=== PATIENT | male | born 1970 | race Caucasian/White ===

== ENCOUNTER 2016-08-04 17:25 | Emergency (ER) | payer BC, OTHER ==
[~2016-08-04] VITALS: Ht 175.3 cm; Wt 113.6 kg
[~2016-08-04 17:25] MED LIST: HYDR-2145 PO; MELO-32 PO; bp med
[2016-08-04 17:28] VITALS: Ht 175.3 cm; Wt 113.6 kg
--- OUTSIDE RECORDS SUMMARY | 2016-08-04 17:28 | XMS REPORT ---
Author Author Lotus Langston [facility] eClinicalWorks Address Unknown Phone Unavailable Care Team Providers Care Stadium Attendant Name Role Phone Lotus Langston Unavailable Allergies No Known Allergies Problems Problem Type Condition Code Onset Dates Condition Status Problem Hypertension I10 Active Medications Medication Code System Code Instructions Start Date End Date Status Dosage Adderall [facility] [address]-39 20 MG Orally BID September 09, 2015 1 tablet Results No Known Results Summary Purpose eClinicalWorks Submission
--- OUTSIDE RECORDS SUMMARY | 2016-08-04 17:28 | XMS REPORT ---
Author Author Lotus Langston Organization eClinicalWorks Address Unknown Phone Unavailable Care Team Providers Care Finished Metal Repairer Name Role Phone Lotus Langston CP Unavailable Allergies No Known Allergies Problems Problem Type Condition Code Onset Dates Condition Status Problem Personal history of noncompliance with medical treatment, presenting hazards to health V15.81 Active Problem Obstructive sleep apnea (adult) (pediatric) 327.23 Active Problem Overweight 278.02 Active Problem Attention or concentration deficit 799.51 Active Problem Other testicular hypofunction 257.2 Active Problem Personal history of tobacco use, presenting hazards to health V15.82 Active Problem Nondependent tobacco use disorder 305.1 Active Problem Elevated blood pressure reading without diagnosis of hypertension 796.2 Active Problem Nondependent opioid abuse, episodic pattern of use 305.52 Active Medications Medication Code System Code Instructions Start Date End Date Status Dosage Adderall [facility] [address]-93 20 MG Orally BID; May fill 08/13/15 June 22, 2015 1 tablet Results No Known Results Summary Purpose eClinicalWorks Submission
--- OUTSIDE RECORDS SUMMARY | 2016-08-04 17:28 | XMS REPORT ---
Author Author Michaelle Gordon Organization [facility] Address [address] [place] [address] Care Team Providers Care Hydraulic Lift Operator Name Role Phone Gordon, Michaelle Unavailable [phone] PROBLEMS Type Condition ICD9-CM Code [id number] Code Onset Dates Condition Status SNOMED Code Problem Impaired fasting glucose R73.01 Active 427768181 Problem Insomnia, unspecified G47.00 Active 398215222 Problem Other fatigue R53.83 Active 48013069 Assessment Attention and concentration deficit R41.840 Jul, Active 426214892 Problem Hypertension I10 Active 78084543 Problem Personal history of nicotine dependence Z87.891 Active 94573815 Problem Attention and concentration deficit R41.840 Active 233409153 Problem Elevated blood-pressure reading, without diagnosis of hypertension R03.0 Active 175147696 Problem Obstructive sleep apnea (adult) (pediatric) G47.33 Active 27742715 Problem Umbilical hernia without obstruction or gangrene K42.9 Active 957170511 Problem Testicular hypofunction E29.1 Active 647905929 Problem Opioid abuse with intoxication, uncomplicated F11.120 Active ALLERGIES Substance Reaction Event Type Date Status N.K.D.A. Unknown Non Drug Allergy Jul, Unknown SOCIAL HISTORY No smoking Hx information available PLAN OF CARE VITAL SIGNS Temperature 97.5 degrees Fahrenheit 2016-07-19 Heart Rate 79 /min 2016-07-19 Height 5 ft 9 in in 2016-07-19 Weight 255.4 lbs 2016-07-19 BMI 37.71 kg/m2 2016-07-19 Oximetry 97 % 2016-07-19 Blood pressure systolic 140 mm Hg 2016-07-19 Blood pressure diastolic 80 mm Hg 2016-07-19 MEDICATIONS Medication Instructions Dosage Frequency Start Date End Date Duration Status Adderall 20 MG Orally BID 1 tablet 12h August, 30 Active Methadone HCl 10 MG Orally Once a day 1 tablet 24h Active Amphetamine-Dextroamphetamine 20 MG Orally bid 1 tablet in the morning 12h Jun, Active Hydrochlorothiazide 12.5 MG Orally Once a day 1 tablet 24h August, 30 day(s) Active RESULTS No Results PROCEDURES Procedure Date Ordered Related Diagnosis Body Site Office Visit, Est Pt., Level 3 July 19, 2016 IMMUNIZATIONS No Known Immunizations
--- OUTSIDE RECORDS SUMMARY | 2016-08-04 17:28 | XMS REPORT ---
Author Author Lotus Langston Organization eClinicalWorks Address Unknown Phone Unavailable Care Team Providers Care Daytime Caregiver Name Role Phone Lotus Langston CP Unavailable [...] Start Date End Date Status Dosage Adderall [facility] [address]-96 20 MG Orally BID September 03, 2014 1 tablet Results No Known Results Summary Purpose eClinicalWorks Submission
--- OUTSIDE RECORDS SUMMARY | 2016-08-04 17:29 | XMS REPORT ---
Author Author Lotus Langston Organization eClinicalWorks Address Unknown Phone Unavailable Care Team Providers Care Assistant Director Of Security Name Role Phone Lotus Langston CP Unavailable [...] episodic pattern of use 305.52 Active Medications No Known Medications Results No Known Results Summary Purpose eClinicalWorks Submission
--- OUTSIDE RECORDS SUMMARY | 2016-08-04 17:29 | XMS REPORT ---
Author Author Lotus Langston Organization eClinicalWorks Address Unknown Phone Unavailable Care Team Providers Care Forest Patrolman Name Role Phone Lotus Langston CP Unavailable [...] Start Date End Date Status Dosage Adderall [facility] [address]-65 20 MG Orally BID September 03, 2014 1 tablet Results No Known Results Summary Purpose eClinicalWorks Submission
--- OUTSIDE RECORDS SUMMARY | 2016-08-04 17:29 | XMS REPORT ---
Author Author Lotus Langston [facility] Address [address], [place] [id number] Care Team Providers Care [place] Name Role Phone Lotus Langston Unavailable [phone] PROBLEMS Type Condition ICD9-CM Code [id number] Code Onset Dates Condition Status SNOMED Code Problem Impaired fasting glucose R73.01 Active 034736272 Problem Insomnia, unspecified G47.00 Active 969508792 Problem Other fatigue R53.83 Active 71244591 Problem Hypertension I10 Active 54363534 Problem Personal history of nicotine dependence Z87.891 Active 35264838 Problem Attention and concentration deficit R41.840 Active 506819084 Problem Elevated blood-pressure reading, without diagnosis of hypertension R03.0 Active 786093232 Problem Obstructive sleep apnea (adult) (pediatric) G47.33 Active 88162361 Problem Umbilical hernia without obstruction or gangrene K42.9 Active 038669136 Problem Testicular hypofunction E29.1 Active 705166292 Problem Opioid abuse with intoxication, uncomplicated F11.120 Active ALLERGIES Unknown Allergies SOCIAL HISTORY No smoking Hx information available PLAN OF CARE VITAL SIGNS MEDICATIONS Unknown Medications RESULTS No Results PROCEDURES No Known procedures IMMUNIZATIONS No Known Immunizations
--- NOTE | 2016-08-04 17:32 | NUR ---
DR DR BOONE AT BEDSIDE.
[2016-08-04] MEDS ORDERED: METH40TA2 PO (17:46)
[2016-08-04] MEDS ORDERED: HYDR12.54 PO (17:47)
--- NOTE | 2016-08-04 17:58 | ERPDOC ---
Departure Disposition Decision Date: Aug 04, 2016 Disposition Decision Time: 17:55 Disposition: 01 DISCHARGED HOME, SELF-CARE Impression Impression Impression: Primary Impression: Pain, dental Severity: Mild Condition: Improved Seen By: Physician only Referrals: JOHN ANTHONY MD (Family) 2 Days [facility] 2 Days Patient Instructions: Dental Caries (ED), Toothache (ED), ED Dental Follow-up Problems/Meds/Labs Reviewed?: Yes Medications reviewed and manag: Yes Follow up care ordered?: Yes Mental Status: Alert, Oriented Scripts Amoxicillin (Amoxicillin) 500 Mg Capsule 1 CAP PO TID for 10 Days, #30 CAP 0 Refills Prov: RICHIE BOONE DO 08/04/16 Hydrocodone/Acetaminophen (Otho 7.5-325 Tablet) 7.5-325 Tablet 1 TAB PO Q4HR Y for PAIN for 2 Days, #12 TAB 0 Refills Prov: RICHIE BOONE DO 08/04/16 HPI - EENT General General Chief Complaint: Toothache Stated Complaint: TOOTH PAIN Time Seen by Provider: 17:31 Source: patient Exam Limitations: no limitations HPI - EENT General Initial Comments 46-year-old male presents to emergency department with a chief complaint of dental pain. Patient noted onset of symptoms "a couple of days ago." Patient notes pain in the bottom right tooth that is 5 from the midline. It is sharp. Pain does not radiate. Pain increases with chewing and pressure to the affected area. Patient improves with analgesia. No other complaints or associated symptoms. Patient was at home when the symptoms began. Patient noticed a gradual onset of symptoms progression. Patient has a appointment scheduled with his dentist. Patient is asymptomatic with elevated blood pressure. Patient has a known history of hypertension and has not taken his antihypertensive medication today. Occurred At: home Onset/Timing: Gradual Allergies: Coded Allergies: No Known Allergies (Unverified , 08/04/16) Past History Past Medical History Metabolic: hypertension Surgical History Denies Surgeries Family History Family History: Negative Social History Smoking Status: Never smoker Substance Use Type: does not use Alcohol Intake: none Review of Systems Constitutional Constitutional: DENIES: chills, fever Eyes General: DENIES: erythema, exudate Lids/Accessories: DENIES: erythema, swelling Vision: DENIES: acuity, blurring ENMT Ears: DENIES: drainage, erythema Hearing: DENIES: hearing loss Balance: DENIES: ataxia, falling to one side Sinuses: DENIES: congestion, pain Nose: DENIES: nosebleeds, pain Mouth/Throat: DENIES: painful swallowing, sore throat Teeth: DENIES: pain Jaw: DENIES: pain Cardiovascular Cardiac: DENIES: chest pain, dyspnea on exertion Rhythm/Rate: DENIES: irregular beat, palpitations Vascular: DENIES: pedal edema, unilateral swelling Pulmonary Respiratory: DENIES: cough, dyspnea, pleuritic chest pain, sputum GI Upper Abdomen: DENIES: nausea, pain, vomiting Lower Abdomen: DENIES: diarrhea, pain General: DENIES: dysuria, frequency Musculoskeletal General: DENIES: joint pain, tenderness Integumentary Skin: DENIES: itching, rash Neurological General: DENIES: headache, numbness, weakness Psychiatric Psychiatric: DENIES: emotional instability, suicidal ideation/attempt Endocrine Endocrine: DENIES: polydipsia, polyphagia Hematologic/Lymphatic Hematologic/Lymphatic: DENIES: frequent nosebleeds, lymphadenopathy Allergic/Immunological Allergic/Immunoligical: DENIES: hives Physical Exam General General Nourishment: well nourished, well developed, appears stated age, no acute distress, adult General Body Habitus: well groomed Vitals and Pain First Documented Vital Signs Date Time Temp Pulse Resp B/P Pulse Ox O2 Delivery O2 Flow Rate FiO2 08/04/16 17:28 98.5 70 16 201/100 97 Room Air Weight: Kilograms: 113.600 Height (feet): 5 Height (inches): 9.00 Triage Pain Scale: RN VS reviewed by Provider: Yes Normal Exams: Head: Normocephalic w/o trauma Eyes: Pupils are PERRLA w/ EOMI, No scleral icterus, irritation, or foreign bodies noted ENMT: No facial trauma, nasal exudates, pharyngeal erythema, or exudates are noted Neck: Full range of motion, without adenopathy, JVD, bruits or thyromegaly Chest/Resp: Clear all hernández, with good airflow, and symmetry bilaterally CV: Regular rate and rhythm, without murmur or gallop, Pulses 2+ all extremities, capillary refill, <2 seconds all ext., no pedal edema noted Abdomen: Bowel sounds positive, soft, non-tender, non-distended, no hepatosplenomegaly, masses or bruits noted Lymphatic: No lymphadenopathy, or lymphedema noted Musculoskeletal: No tenderness, or deformity noted, good range of motion, all extremities Integumentary: No rashes, hives, or bruising noted, hair and nails, without abnormality Neurologic: Patient is alert, and oriented, cranial nerves, motor/sensory/ cerebellar, exams w/o gross deficits, to observation Psychiatric: Patient exhibits, appropriate attention, emotion and affect ENMT (brief) Comments Oral - tooth #29 is tender to percussion. Tooth has dental caries. No exposed pulp or dentin. No sign of abscess. Uvula midline. Voice is normal. No pharyngeal erythema. No tonsillar exudate. No elevation of tongue. No facial swelling or cellulitis. Handling secretions without difficulty. Differential Diagnoses Considering: Other (dental pain/dental caries/dental abscess/dental trauma) Progress Results/Orders Orders Procedure Category Date Status Time Amoxicillin (Amoxil) PHA 08/04/16 Complete 18:00 Acetaminophen PHA 08/04/16 Complete (Tylenol Extra 18:00 Medications Current ED Medications Amoxicillin (Amoxil) 500 mg O ONCE PO Last administered on 08/04/16 18:05; Start 08/04/16 at 18:00; Stop 08/04/16 at 18:01; Status DC Acetaminophen (Tylenol Extra Strength) 1,000 mg O ONCE PO Last administered on 08/04/16 18:06; Start 08/04/16 at 18:00; Stop 08/04/16 at 18:01; Status DC Progress Progress Patient is given initial doses of amoxicillin and acetaminophen in the emergency department with improvement of symptoms. Patient is discharged home in improved condition. He is to follow up as instructed. Patient is to return to the emergency department if his condition worsens or changes in any manner. Patient is in agreement with the current plan of management. He is to follow up as instructed. Prescriptions for amoxicillin and for Otho are provided. Patient was asymptomatic with elevated blood pressure. He has not taken his blood pressure medication today and will do immediately upon returning home. He declines evaluation or treatment of blood pressure in the ED. RICHIE BOONE DO Aug 04, 2016 17:58
[2016-08-04] MEDS ORDERED: HYDR-347 PO (17:59)
[2016-08-04] MEDS ORDERED: AMOX500C2 PO (17:59)
[2016-08-04] MEDS ORDERED: AMOXICILLIN 500 MG CAPSULE PO ONE (18:00)
[2016-08-04] MEDS ORDERED: ACETAMINOPHEN 500 MG TABLET PO ONE (18:00)
[2016-08-04 18:11] VITALS: BP 175/100; PULSE 82; RESP 18; TEMP 98.5; O2SAT 97
--- NOTE | 2016-08-04 18:11 | NUR ---
DISMISS PT AMBULATORY TO LOBBY. PT DENIED FURTHER QUESTIONS.
== END 2016-08-04 18:11 | disposition home or self-care (01) ==
LOC: ED 17:25
DX: K08.89 Other specified disorders of teeth and supporting structures (principal); F17.220 Nicotine dependence, chewing tobacco, uncomplicated